=== PATIENT | male | born 1995 | race Caucasian/White ===

== ENCOUNTER 2020-06-16 17:23 | Emergency (ER) | payer BC, SELFPAY ==
--- NOTE | ~2020-06-16 | XR_ITS ---
EXAMINATION: XR chest 2V EXAM DATE: 06/16/2020 17:58 INDICATION: Cough. TECHNIQUE: Frontal and lateral projections of the chest obtained and reviewed. Comparison is made to prior examination from 01/23/2016. FINDINGS: The lungs are clear. There are no pleural effusions. The cardiomediastinal silhouette is within normal limits. There is no pneumothorax suspected. The bones and soft tissues are unremarkab le. IMPRESSION: No acute cardiopulmonary findings. Reviewed, dictated and finalized at location A. STRIAL [facility]
[2020-06-16 17:31] VITALS: BP 152/77; PULSE 67; RESP 16; TEMP 37.1; O2SAT 97
--- NOTE | 2020-06-16 17:34 | ED.GENADULT ---
HPI - General Adult General Chief complaint: Upper Respiratory Infection Stated complaint: cough/chest congestion/sinus drainage Time Seen by Provider: 06/16/20 17:37 Source: patient and RN notes reviewed Mode of arrival: ambulatory Limitations: no limitations History of Present Illness HPI narrative: 24-year-old male presents with complaints of upper respiratory infection, cough, and chest congestion for 1 year. Aaron says symptoms has increased over the past 7 days with increasing productive black sputum. Intermittent nasal congestion. No rhinorrhea. No chest pain or shortness of breath. Exacerbating factors consist of cigarette smoke. Denies fever. Denies nausea, vomiting, and abdominal pain. Tolerating po intake well. Remains active. The patient reports he have not been diagnosed with COVID-19. The patient reports he is not waiting for the results of a COVID-19 lab test. The patient reports he do not have chills, weakness, or fatigue. The patient reports he do not have a new or worsening cough or shortness of breath. The patient reports he do not have any rhinorrhea, congestion, loss of taste, sore throat, or diarrhea. Denies recent traveling. Denies concerns for COVID-19 or exposures been home with limited outdoor exposure except for essential household needs and return home. At this time, patient is not suspected of having COVID-19. Some parts of this dictation were generated by voice recognition software and may contain typographical and/or grammatical inaccuracies. Related Data Home Medications Medication Instructions Recorded Confirmed escitalopram oxalate 10 mg PO DAILY 06/16/20 06/16/20 lamotrigine 25 mg PO DAILY 06/16/20 06/16/20 trazodone 100 mg PO HS PRN 06/16/20 06/16/20 Allergies Allergy/AdvReac Type Severity Reaction Status Date / Time No Known Allergies Allergy Verified 06/16/20 17:41 Review of Systems Review of Systems: Narrative: CONSTITUTIONAL: Denies fever, chills, sweats. EYES: Denies visual changes, redness, discharge. ENT: Complains of intermittent congestion. Denies rhinorrhea, sore throat, otalgia. CARDIOVASCULAR: Denies chest pain, palpitations, edema. RESPIRATORY: Denies dyspnea, wheezing. Complains of chest congestion, dry cough, intermittent productive. GASTROINTESTINAL: Denies abdominal pain, nausea, vomiting, diarrhea. GENITOURINARY: Denies dysuria, hematuria, abnormal discharge. SKIN: Denies rash or itching. MUSCULOSKELETAL: Denies acute back pain, joint pain, or myalgia. NEUROLOGIC: Denies numbness or focal weakness. PSYCHIATRIC: Denies anxiety or depression. All systems reviewed & are unremarkable except as noted in HPI and below. [facility] Past Medical History Medical History ADHD (attention deficit hyperactivity disorder) Asthma childhood, Aaron says he used an inhaler Smoker Surgical History Surgical History (Updated 06/16/20 @ 17:55 by RAFIQ Virgen) No significant past surgical history Family History Family History (Updated 06/16/20 @ 17:56 by RAFIQ Virgen) Father Acute myocardial infarction Heart disease Cerebrovascular accident Mother Unknown family medical history Social History Social History (Updated 06/16/20 @ 17:57 by RAFIQ Virgen) Smoking packs per day: 0.5 Smoking cigarettes per day: 10.0 Years smoked: 11 Smoking pack-years: 5.50 Smoking status: Current every day smoker Tobacco type: cigarettes Second hand tobacco smoke exposure: Yes Alcohol intake: current Substance use: former Substance use type: marijuana Living arrangements: with family Additional living arrangements comments: father and grandmother Occupation/Education: unemployed Gender identity (if verbalized by the patient): Male Comments At time of signature, agree with nurse past medical, surgical, social, and family history. There is relevant patient's past medical history pertinent to the presenting
== END 2020-06-16 18:15 | disposition home or self-care (01) ==
PROVIDERS: Emergency Provider Nurse Practitioner Family
DX: B34.9 Viral infection, unspecified (principal); F17.210 Nicotine dependence, cigarettes, uncomplicated; F90.9 Attention-deficit hyperactivity disorder, unspecified type
CPT/HCPCS: 71046; 87081; 87804; 87880; 99213; G0463

== ENCOUNTER 2021-10-31 13:14 | Emergency (ER) | payer BC, SELFPAY ==
--- NOTE | 2021-10-31 13:15 | ED.BACK ---
HPI - Back Pain/Injury General Chief Complaint: Back Pain/Injury Stated Complaint: Low Back Pain Time Seen by Provider: 10/31/21 13:15 Source: patient and RN notes reviewed History of Present Illness HPI Narrative: Patient is a 26-year-old male who presents the urgent care with complaints of low back pain that started 4 days ago. Patient has not taken anything [id number] for his pain because he states he cannot afford it . Patient states that he is having back spasms. States that recently he has been helping a friend move a lot of logs, trees and sleeping on couches as well as in his car. Patient denies any radiation of pain. Denies any urinary symptoms. No other complaints. Patient does appear to be in pain. Patient aware of the plan of care Some parts of this dictation were generated by voice recognition software and may contain typographical and/or grammatical inaccuracies. Related Data Allergies Allergy/AdvReac Type Severity Reaction Status Date / Time No Known Allergies Allergy Verified 10/31/21 13:32 Review of Systems Review of Systems: CONSTITUTIONAL: Denies fever, chills, or sweats. EYES: Denies visual changes, redness, or discharge. ENT: Denies rhinorrhea, congestion, sore throat, or otalgia. CARDIOVASCULAR: Denies chest pain, palpitations, or edema. RESPIRATORY: Denies cough or dyspnea. GASTROINTESTINAL: Denies abdominal pain, nausea, vomiting, or diarrhea. GENITOURINARY: Denies dysuria or hematuria. SKIN: Denies rash or itching. MUSCULOSKELETAL: Reports of low back pain NEUROLOGIC: Denies headache, numbness, or weakness. All other systems reviewed are negative, except as documented in HPI. [facility] Past Medical History Medical History ADHD (attention deficit hyperactivity disorder) Asthma childhood, Aaron says he used an inhaler Smoker Surgical History Surgical History (Updated 06/16/20 @ 17:55 by RAFIQ Virgen) No significant past surgical history Family History Family History (Updated 06/16/20 @ 17:56 by RAFIQ Virgen) Father Acute myocardial infarction Heart disease Cerebrovascular accident Mother Unknown family medical history Social History Social History (Updated 06/16/20 @ 17:57 by RAFIQ Virgen) Smoking packs per day: 0.5 Smoking cigarettes per day: 10.0 Years smoked: 11 Smoking pack-years: 5.50 Smoking status: Current every day smoker Tobacco type: cigarettes Second hand tobacco smoke exposure: Yes Alcohol intake: current Substance use: former Substance use type: marijuana Additional living arrangements comments: father and grandmother Gender identity (if verbalized by the patient): Male Comments At the time of my signature, I reviewed and agree with the nursing past medical, surgical, social, and family history. There is no relevant family history pertinent to the patient complaint. Exam Narrative: GENERAL: This is a well-nourished, well-developed patient, in no apparent distress. HEAD: normocephalic, atraumatic. EYES: PERRL. Sclera clear/white. Vision is grossly intact. EARS: External ears normal NOSE: External nose normal with no obvious nasal discharge, nares without redness, no rhinorrhea. THROAT: Mucous membranes moist NECK: Neck supple CARDIOVASCULAR: Regular rate and rhythm without murmurs, gallops, or rubs. RESPIRATORY: Clear to auscultation. Breath sounds equal bilaterally. No wheezes, rales, or rhonchi. SKIN: warm, intact with no suspicious lesions or rash, good texture and turgor. NEURO: awake, alert, and oriented to person, place and time. There were no obvious focal neurologic abnormalities. EXTREMITIES: No clubbing, cyanosis, or edema. BACK: Diffuse mild to moderate lumbar tenderness with negative SLR bilaterally Course Course Level of Care: Express Care Visit Vital Signs Vital signs: Vital Signs Temperature 98.2 F 10/31/21 13:19 Pulse Rate 69 10/31/21 13:19 Respiratory Rat
[2021-10-31 13:19] VITALS: BP 99/50; PULSE 69; RESP 16; TEMP 36.8; O2SAT 100
[2021-10-31 13:33] VITALS: BP 99/50; PULSE 69; RESP 16; TEMP 36.8; O2SAT 100
== END 2021-10-31 13:43 | disposition home or self-care (01) ==
PROVIDERS: Emergency Provider Nurse Practitioner Family
DX: S39.012A Strain of muscle, fascia and tendon of lower back, initial encounter (principal); X58.XXXA Exposure to other specified factors, initial encounter; F17.210 Nicotine dependence, cigarettes, uncomplicated
CPT/HCPCS: 99213; G0463

== ENCOUNTER 2022-03-03 20:42 | Emergency (ER) | payer SELFPAY ==
[2022-03-03 20:46] VITALS: BP 142/84; PULSE 73; RESP 16; TEMP 36.4; O2SAT 100
--- NOTE | 2022-03-03 22:03 | ED.PSYCH ---
HPI - Psych General Chief Complaint: Psychiatric Symptoms Stated Complaint: Psych Time Seen by Provider: 03/03/22 20:52 History of Present Illness HPI Narrative: Patient is a 26-year-old male who presents the ER due to the fact that he is homeless and is in need of some help. Reports he has a lot of family conflict between him and his parents. Reports he has been intermittently homeless for several years. There is a recent fight with his father. He was picked up on the side of the road by the police and dropped off it a bus stop in [facility]. Patient was then brought here by another local law enforcement official. Patient has no reports of suicidal ideation or homicidal ideation. She is not hearing voices nor is she seeing things that are not actually there. Reports he has poor literacy which makes things hard for him. He currently does not have a place to stay and currently has no means of transportation. Patient reports he has history of ADHD but is unmedicated. Patient denies any violence against him. Reports that there are a lot of drugs in the home where he had been staying which makes him frustrated and has caused him to have fights with his parents. Related Data Allergies Allergy/AdvReac Type Severity Reaction Status Date / Time No Known Allergies Allergy Verified 03/03/22 21:59 Review of Systems Review of Systems: All systems reviewed & are unremarkable except as noted in HPI and below Constitutional: Constitutional: Denies chills, Denies fatigue and Denies fever(s) ENT: Denies nasal congestion and Denies sore throat Cardiovascular: Cardiovascular: Denies chest pain and Denies rapid heart rate Respiratory: Respiratory: Denies cough and Denies dyspnea Gastrointestinal: Gastrointestinal: Denies abdominal pain, Denies nausea and Denies vomiting Psychiatric: Psychiatric: Denies anxiety, Denies depression, Denies homicidal ideation and Denies suicidal ideation [facility] Past Medical History Medical History ADHD (attention deficit hyperactivity disorder) Asthma childhood, Aaron says he used an inhaler Smoker Surgical History Surgical History (Updated 06/16/20 @ 17:55 by RAFIQ Virgen) No significant past surgical history Family History Family History (Updated 06/16/20 @ 17:56 by RAFIQ Virgen) Father Acute myocardial infarction Heart disease Cerebrovascular accident Mother Unknown family medical history Social History Social History (Updated 06/16/20 @ 17:57 by VESTA Virgen Smoking packs per day: 0.5 Smoking cigarettes per day: 10.0 Years smoked: 11 Smoking pack-years: 5.50 Smoking status: Current every day smoker Tobacco type: cigarettes Second hand tobacco smoke exposure: Yes Alcohol intake: current Substance use: former Substance use type: marijuana Additional living arrangements comments: father and grandmother Gender identity (if verbalized by the patient): Male Exam Narrative: GENERAL: Well-appearing, well-nourished, and in no acute distress. HEAD: Normocephalic, atraumatic. EYES: PERRL and EOMI. CHEST: Clear to auscultation. No respiratory distress. HEART: Regular rate and rhythm. Normal peripheral pulses. ABDOMEN: Soft, nontender, nondistendeds. EXTREMITIES: Normal range of motion. No edema. SKIN: Warm, dry, no rash. NEURO: Alert and oriented x3. PSYCH: Normal mood and affect. Course Course Emergency Course: Patient resting comfortably in the ER. Has no SI/HI or other medical complaints. He has been provided with a list of shelters and soup yany. Vital Signs Vital signs: Vital Signs Temperature 97.5 F L 03/03/22 20:46 Pulse Rate 73 03/03/22 20:46 Respiratory Rate 16 03/03/22 20:46 Blood Pressure 142/84 H 03/03/22 20:46 Pulse Oximetry 100 03/03/22 20:46 Temperature 97.5 F L 03/03/22 20:46 Pulse Rate 73 03/03/22 20:46 Respiratory Rate 16 03/03/22 20:46 Blood P
--- NOTE | 2022-03-03 22:16 | PC.NURSE ---
Patient given all resources and information for all homeless shelters, food pantries, [facility] services that he requested. patient also received food and drink when asked. Patient upset that he came here because he needs a bed and food to stay for a few days and it was then explained that the ED is unable to provide housing. patient given resources to ride bus to homeless retirement.
== END 2022-03-03 22:33 | disposition home or self-care (01) ==
PROVIDERS: Emergency Provider Emergency Medicine
DX: Z59.00 Homelessness unspecified (principal); Z63.9 Problem related to primary support group, unspecified; J45.909 Unspecified asthma, uncomplicated; F17.210 Nicotine dependence, cigarettes, uncomplicated
CPT/HCPCS: 99281

== ENCOUNTER 2022-04-09 15:50 | Emergency (ER) | payer BC, SELFPAY ==
[2022-04-09 15:56] VITALS: BP 118/87; PULSE 90; RESP 16; TEMP 36.9; O2SAT 100
--- NOTE | 2022-04-09 16:10 | ED.ANXIETY ---
HPI - Anxiety General Chief Complaint: Anxiety Stated Complaint: panick attacks Time Seen by Provider: 04/09/22 16:05 Source: patient, family, RN notes reviewed and old records reviewed Mode of arrival: ambulatory Limitations: no limitations History of Present Illness HPI narrative: 26 year old male who presents to [facility] care with complaints of acute anxiety, panic attack with feelings of shortness of breath and chest tightness. Patient reports that he tried smoking marijuana but made his anxiety worse. Patient denies any present psychiatric care or provider. Patient states he has been in treatment before but they just tell me I need to get away from my family. Patient reports that he has been homeless for about a year but is recently staying with father and grandmother. When asked if he had ever been diagnosed with Bipolar which is noted on history he stated he had been given all kinds of diagnosis in the past maybe they even told him he was . When asked if he would try something like Vistaril for his anxiety he became belligerent and argumentative stating he needs something like Ativan or Xanax cause he knows that works.Patient denies any suicidal or homicidal ideation. Patient speaks to father in very hateful tone though he brought him here to try to help him. MD complaint: anxiety Onset (ago): day(s) (today) Associated symptoms: other (belligerent and argumentative) Related Data Allergies Allergy/AdvReac Type Severity Reaction Status Date / Time No Known Allergies Allergy Verified 04/09/22 16:12 Review of Systems Review of Systems: CONSTITUTIONAL: Denies fever, chills, or sweats. EYES: Denies visual changes, redness, or discharge. ENT: Denies rhinorrhea, congestion, sore throat, or otalgia. CARDIOVASCULAR: Reports chest tightness denies palpitations, or edema. RESPIRATORY: Denies cough states dyspnea. GASTROINTESTINAL: Denies abdominal pain, nausea, vomiting, or diarrhea. GENITOURINARY: Denies dysuria or hematuria. SKIN: Denies rash or itching. MUSCULOSKELETAL: Denies back pain, joint pain, or myalgia. NEUROLOGIC: Denies headache, numbness, or weakness. PSYCHIATRIC: Positive for anxiety or depression. All systems reviewed & are unremarkable except as noted in HPI and below [facility] Past Medical History Medical History ADHD (attention deficit hyperactivity disorder) Anxiety attack Asthma childhood, Aaron says he used an inhaler Smoker Surgical History Surgical History (Updated 06/16/20 @ 17:55 by RAFIQ Virgen) No significant past surgical history Family History Family History (Updated 06/16/20 @ 17:56 by RAFIQ Virgen) Father Acute myocardial infarction Heart disease Cerebrovascular accident Mother Unknown family medical history Social History Social History (Updated 04/12/22 @ 19:56 by Karon Moore NP) Smoking packs per day: 0.5 Smoking cigarettes per day: 10.0 Years smoked: 11 Smoking pack-years: 5.50 Smoking status: Current every day smoker Tobacco type: cigarettes Second hand tobacco smoke exposure: Yes Alcohol intake: current Substance use: current Substance use type: marijuana Additional living arrangements comments: father and grandmother Occupation/Education: unemployed Gender identity (if verbalized by the patient): Male Exam Narrative: GENERAL: Well-appearing, well-nourished, and in no acute distress. HEAD: Normocephalic, atraumatic. EYES: PERRLA and EOMI. ENT: Nares clear, no rhinorrhea or epistaxis. Mucous membranes moist.TM's normal, throat pink with no redness or swelling NECK: Supple.no lymphadenopathy CHEST: Clear to auscultation. No respiratory distress.SAO2 100% on room air HEART: Regular rate and rhythm. No murmur heard. Normal peripheral pulses. ABDOMEN: Soft, nontender, nondistended, normal active bowel sounds. EXTREMITIES: Normal range of motion. No edema. SKIN: Warm, dry, no rash. NEURO: No focal deficits. Alert
== END 2022-04-09 16:25 | disposition home or self-care (01) ==
PROVIDERS: Emergency Provider Registered Nurse
DX: F41.9 Anxiety disorder, unspecified (principal); F17.210 Nicotine dependence, cigarettes, uncomplicated
CPT/HCPCS: 99213; G0463

== ENCOUNTER 2023-02-18 16:54 | Emergency (ER) | payer BC, SELFPAY ==
[2023-02-18 17:05] VITALS: BP 117/79; PULSE 80; RESP 16; TEMP 36.3; O2SAT 100
--- NOTE | 2023-02-18 17:09 | ED.SKABFB ---
HPI - Skin/Abscess/Foreign Bdy General Chief complaint: Skin/Abscess/Foreign Body Stated complaint: stepped apryl nail and needle on feet Time Seen by Provider: 02/18/23 17:09 Source: patient Mode of arrival: ambulatory Limitations: no limitations History of Present Illness HPI narrative: 27 yo M presents with concern for infection to cuticle of bilateral great toes. pt is homeless. sometimes has somewhere to stay and other times he sleeps on the streets. pt arrived not wearing shoes. States he does have shoes but didnt' want to wear them and make infection to toes worse. pt dropped off by his father and states his father will pick him up and take him to the pharmacy. All systems reviewed and negative except as noted above. Related Data Allergies Allergy/AdvReac Type Severity Reaction Status Date / Time No Known Allergies Allergy Verified 02/18/23 17:15 Review of Systems Review of Systems: CONSTITUTIONAL: Denies fever, chills, or sweats. EYES: Denies visual changes, redness, or discharge. ENT: Denies rhinorrhea, congestion, sore throat, or otalgia. CARDIOVASCULAR: Denies chest pain, palpitations, or edema. RESPIRATORY: Denies cough or dyspnea. GASTROINTESTINAL: Denies abdominal pain, nausea, vomiting, or diarrhea. GENITOURINARY: Denies dysuria or hematuria. SKIN: Denies rash or itching. reports infection to cuticles of bilateral great toes. MUSCULOSKELETAL: Denies back pain, joint pain, or myalgia. NEUROLOGIC: Denies headache, numbness, or weakness. PSYCHIATRIC: Denies anxiety or depression. All other systems reviewed are negative, except as documented in HPI. [facility] Past Medical History Medical History ADHD (attention deficit hyperactivity disorder) Anxiety attack Asthma childhood, Aaron says he used an inhaler Smoker Surgical History Surgical History (Updated 06/16/20 @ 17:55 by RAFIQ Virgen) No significant past surgical history Family History Family History (Updated 06/16/20 @ 17:56 by RAFIQ Virgen) Father Acute myocardial infarction Heart disease Cerebrovascular accident Mother Unknown family medical history Social History Social History (Updated 04/12/22 @ 19:56 by Karon Moore NP) Smoking packs per day: 0.5 Smoking cigarettes per day: 10.0 Years smoked: 11 Smoking pack-years: 5.50 Smoking status: Current every day smoker Tobacco type: cigarettes Second hand tobacco smoke exposure: Yes Alcohol intake: current Substance use: current Substance use type: marijuana Living arrangements: with family Additional living arrangements comments: father and grandmother Occupation/Education: unemployed Gender identity (if verbalized by the patient): Male Comments At time of signature, agree with nursing past medical, surgical, social and family history. There is no relevant family history pertinent to the presenting complaint. Exam Narrative: GENERAL: This is a well-nourished, well-developed patient, in no apparent distress. HEAD: normocephalic, atraumatic. EYES: PERRL. Sclera clear/white. Vision is grossly intact. EARS: External ears normal NOSE: External nose normal NECK: Neck supple, non-tender without lymphadenopathy, masses or thyromegaly. CARDIOVASCULAR: Regular rate and rhythm without murmurs, gallops, or rubs. RESPIRATORY: Clear to auscultation. Breath sounds equal bilaterally. No wheezes, rales, or rhonchi. SKIN: warm, Dry, intact with no suspicious lesions or rash, good texture and turgor. erythema with swelling and purulent drainage to bilateral great toes, medial aspect. possibly ingrown toenails. NEURO: awake, alert, and oriented to person, place and time. There were no obvious focal neurologic abnormalities. EXTREMITIES: No joint tenderness, effusion, or edema noted. Course Course Level of Care: Express Care Visit Vital Signs Vital signs: Vital Signs Temperature 36.3 C L 02/18/23 17:05 Pulse Rat
[2023-02-18 17:15] VITALS: BP 117/79; PULSE 80; RESP 16; TEMP 36.3; O2SAT 100
== END 2023-02-18 17:33 | disposition home or self-care (01) ==
PROVIDERS: Emergency Provider Nurse Practitioner Family; PCP Family Medicine
DX: L60.0 Ingrowing nail (principal); F17.219 Nicotine dependence, cigarettes, with unspecified nicotine-induced disorders; F12.90 Cannabis use, unspecified, uncomplicated
CPT/HCPCS: 99211; 99213; G0463